=== PATIENT | male | born 1950 | race Caucasian/White ===

== ENCOUNTER 2024-04-30 20:54 | Emergency (ER) | payer MEDICARE, BC, SELFPAY ==
[2024-04-30 21:01] VITALS: BP 118/64; PULSE 60; TEMP 36.7; O2SAT 96; BMI 36.0
--- NOTE | 2024-04-30 21:25 | CT_ITS ---
The [address] [address] Patient Name: GLYNN MARTINEZ MRN: [id number] date: 1950 Sex: M Assigned Patient Location: ER Current Patient Location: ER Accession/Order Number: [id number] Exam Date: 04/30/2024 21:33 Report Date: 04/30/2024 23:25 At the request of: NAIN JEFFRIES Procedure: CT head/brain wo con EXAM: CT head/brain wo con HISTORY: Fall, hit head, on Plavix TECHNIQUE: Axial CT scans through the head were obtained without IV contrast administration. Dose reduction techniques were achieved by using: automated exposure control and/or adjustment of mA and /or kV according to patient size and/or the use of an iterative reconstruction technique. COMPARISON: None. FINDINGS: Mild periventricular low attenuation in the cerebral hemispheres without associated mass effect. To the limit of CT, the posterior fossa appears unremarkable. No intracranial hemorrhage is present. No depressed skull fracture is present. The ventricular system and cortical sulci are prominent. No area of abnormal mass effect is shown. The visualized orbits show no gross mass. The visualized paranasal sinuses show no air-fluid levels. Mastoid air cells are clear. CT/CT head/brain wo con IMPRESSION: 1. No depressed skull fracture or intracranial hemorrhage. 2. Mild old microvascular ischemic changes. Mild to moderate cerebral volume loss. Electronically authenticated by: ANITHA RODRIGUEZ Date: 04/30/2024 23:25
--- NOTE | 2024-04-30 21:25 | ED.HEATRA1 ---
HPI HPI - Head Injury General Chief complaint: Head Injury Stated complaint: HEAD INJURY D/T FALL Time Seen by Provider: 04/30/24 21:07 Source: patient Mode of arrival: walk-in History of Present Illness HPI Narrative: 74-year-old male presents to the emergency department for head injury. He slipped and fell and hit the left scalp in a ditch. He also scraped his right knee. This happened just before coming into the emergency department. He is not sure when his last tetanus shot was, probably more than 10 years ago. No LOC and he has no neck pain. He is on Plavix. Related Data Allergies Allergy/AdvReac Type Severity Reaction Status Date / Time No Known Drug Allergies Allergy Verified 04/30/24 21:07 Opioid HPI Opioid Management Most Recent Pain and Opioid Data: No Data to Display Review of Systems ROS Narrative A ten point review of systems is negative except as noted above. Exam Narrative Exam Narrative: Nurses note and vital signs reviewed and patient is not hypoxic. General: The patient appears well and in no apparent distress. Patient is resting comfortably on cart. Skin: Warm, dry, no pallor noted. There is no rash noted. Head: Normocephalic, abrasions present on the left scalp. Cervical spine nontender. Eye: Normal conjunctiva, no drainage Ears, Nose, Mouth, and Throat: oral mucosa is moist. Nares patent. Cardiovascular: Regular Rate and Rhythm Respiratory: Patient is in no distress, no accessory muscle use, lungs are clear to auscultation, no wheezing, rales or rhonchi Back: non-tender including C-spine GI: Soft and nontender Musculoskeletal: Abrasion present below the right knee. Knee has full range of motion without discomfort and no bony tenderness. Neurological: A&O, normal speech Psychiatric: Cooperative Constitutional Vital Signs, click to edit/add: Last Vital Signs Temp 98.1 F 04/30/24 21:01 Pulse 60 04/30/24 21:01 Resp 20 04/30/24 21:01 BP 118/64 04/30/24 21:01 Pulse Ox 96 04/30/24 21:01 O2 Del Method Room Air 04/30/24 21:01 Course Vital Signs Vital signs: Vital Signs Temperature 98.1 F 04/30/24 21:01 Pulse Rate 60 04/30/24 21:01 Respiratory Rate 20 04/30/24 21:01 Blood Pressure 118/64 04/30/24 21:01 Pulse Oximetry 96 04/30/24 21:01 Oxygen Delivery Method Room Air 04/30/24 21:01 Temperature 98.1 F 04/30/24 21:01 Pulse Rate 60 04/30/24 21:01 Respiratory Rate 20 04/30/24 21:01 Blood Pressure 118/64 04/30/24 21:01 Pulse Oximetry 96 04/30/24 21:01 Oxygen Delivery Method Room Air 04/30/24 21:01 MDM - Head Injury MDM Narrative Medical decision making narrative: CT is negative and tetanus is updated. He is able to be discharged home. Findings are discussed with the patient. Differential Diagnosis Differential diagnosis: Likely epidural hematoma, closed head injury, subdural hematoma and other (Abrasion) Imaging Data CT scan - head: Radiologist's impression: ITS Impressions Head CT 04/30/24 21:25 IMPRESSION: 1. No depressed skull fracture or intracranial hemorrhage. 2. Mild old microvascular ischemic changes. Mild to moderate cerebral volume loss. Electronically authenticated by: ANITHA RODRIGUEZ Date: 04/30/2024 23:25 Discharge Plan Discharge Chief Complaint: Head Injury Clinical Impression: Scalp abrasion, Abrasion, knee Patient Disposition: Home, Self-Care Time of Disposition Decision: 23:30 Condition: Good Mode of Transportation: Private Vehicle Print Language: Emirati Instructions: Abrasion (ED) Referrals: KERRY ZELAYA [Primary Care Provider] - 1 week
[2024-04-30] MEDS: BACITRACIN 0.9 GM PACKET 1 PACKET TOPICAL (23:00)
[2024-04-30] MEDS: ADACEL DIPH,PERTUSS(ACELL),TET VAC/PF 0.5 ML ADULT SYRINGE IM (23:01)
== END 2024-04-30 23:40 | disposition home or self-care (01) ==
PROVIDERS: Emergency Provider Emergency Medicine; PCP Family Medicine
DX: S00.01XA Abrasion of scalp, initial encounter (principal); S80.211A Abrasion, right knee, initial encounter; W01.198A Fall on same level from slipping, tripping and stumbling with subsequent striking against other object, initial encounter; Z79.02 Long term (current) use of antithrombotics/antiplatelets
CPT/HCPCS: 70450; 90471; 90715; 99285